=== PATIENT | male | born 1975 | race Caucasian/White ===

== ENCOUNTER → 2023-09-01 10:02 | Outpatient (REF) | payer OTHER, SELFPAY | LOC: HWRAD 10:02 | PROVIDERS: ATTENDING PHYSICIAN Urology; FAMILY PHYSICIAN Student in an Organized Health Care Education/Training Program | DX: N28.1 Cyst of kidney, acquired (principal) | CPT/HCPCS: 71260; 74178; Q9967 ==

== ENCOUNTER → 2024-02-22 14:44 | Outpatient (REF) | payer OTHER, SELFPAY | LOC: HWRAD 14:44 | PROVIDERS: ATTENDING PHYSICIAN Urology; FAMILY PHYSICIAN Student in an Organized Health Care Education/Training Program | DX: C64.2 Malignant neoplasm of left kidney, except renal pelvis (principal) | CPT/HCPCS: 74170; Q9967 ==

== ENCOUNTER → 2024-10-28 07:47 | Outpatient (REF) | payer OTHER, SELFPAY | LOC: RAD 07:47 | PROVIDERS: ATTENDING PHYSICIAN Urology; FAMILY PHYSICIAN Student in an Organized Health Care Education/Training Program; REFERRING PHYSICIAN Physician Assistant Medical | DX: C64.2 Malignant neoplasm of left kidney, except renal pelvis (principal) | CPT/HCPCS: 74170; Q9967 ==